=== PATIENT | male | born 1940 | race Caucasian/White ===

== ENCOUNTER 2017-01-23 18:06 | Observation (INO) | payer MEDICARE, BC ==
[~2017-01-23] VITALS: Ht 185.4 cm; Wt 99.0 kg
[~2017-01-23 18:06] MED LIST: AMOXICILLIN500 MG PO; CIPRO500 MG PO; EC ASPIRIN325 MG PO; FLOMAX0.4 M1 OR; FLOMAX0.4 M1 PO; LEVOTHYROXIN25 MC1 PO; LEVOTHYROXIN75 MCG PO; LISINOP/HCTZ1 TAB PO; METFORMIN500 MG PO; OMEPRAZOLE20 MG PO; PRAVACHOL20 MG PO; TRAMADOL HCL50 MG PO; VENTOLIN HF1 IN; WALKER ADULT XX
[2017-01-23 18:39] LABS: HEMATOCRIT 43.8 % (39.0-50.0); IMMATURE GRANULOCYTES 0.4 % (0.0-1.0); MEAN CELL VOLUME 88.8 fL CALC (80.0-100.0); MEAN CORPUSCULAR HGB 30.4 pG CALC (26.0-32.0); MEAN CORPUSCULAR HGB CONC 34.2 g/L CALC (32.0-36.0); NEUT# 5.33 thou/uL (1.82-7.42); RED BLOOD COUNT 4.93 mill/uL (4.70-6.10); RED CELL DISTRI WIDTH 14.5 % (11.5-15.5)
[2017-01-23 18:56] LABS: ALBUMIN 4.3 g/dL (3.2-5.0); ALKALINE PHOSPHATASE 58 u/l (38-126); AMYLASE 54 u/l (30-110); ANION GAP 16 (6-22 (CALC)); BILIRUBIN, TOTAL 0.9 mg/dL (0.0-1.4); BUN 26 mg/dL (8-23); BUN/CREATININE RATIO 25 (12-20 (CALC)); CALCIUM 9.1 mg/dL (8.4-10.2); CARBON DIOXIDE 20 mmol/l (22-30); CHLORIDE 106 mmol/l (95-108); GFR > 60 ML/MIN (>=60 (CALC)); GFR FOR AFR.AMER. > 60 ML/MIN (>=60 (CALC)); GLUCOSE 158 mg/dL (82-115); LIPASE 87 u/l (23-300); POTASSIUM 3.8 mmol/l (3.5-5.1); SGOT/AST 25 u/l (19-48); SGPT/ALT 42 u/l (11-66); SODIUM 139 mmol/l (137-146); TOTAL PROTEIN 7.8 g/dL (6.3-8.2)
[2017-01-23 19:08] LABS: MYOGLOBIN 112 ng/mL (0 - 121)
[2017-01-24 04:54] LABS: HEMATOCRIT 40.2 % (39.0-50.0); HEMOGLOBIN 13.7 g/dl (14.0-18.0); MEAN CELL VOLUME 89.5 fL CALC (80.0-100.0); MEAN CORPUSCULAR HGB 30.5 pG CALC (26.0-32.0); MEAN CORPUSCULAR HGB CONC 34.1 g/L CALC (32.0-36.0); RED BLOOD COUNT 4.49 mill/uL (4.70-6.10); RED CELL DISTRI WIDTH 14.3 % (11.5-15.5)
[2017-01-24 05:00] VITALS: BP 104/53
[2017-01-24 05:16] LABS: ANION GAP 13 (6-22 (CALC)); BUN 26 mg/dL (8-23); BUN/CREATININE RATIO 26 (12-20 (CALC)); CALCIUM 8.2 mg/dL (8.4-10.2); CALCULATED LDLCHOLESTEROL 57 mg/dL (62-129 (CALC)); CARBON DIOXIDE 23 mmol/l (22-30); CHLORIDE 110 mmol/l (95-108); CHOLESTEROL HDL RATIO 4.9 (<4.4 (CALC)); GFR > 60 ML/MIN (>=60 (CALC)); GFR FOR AFR.AMER. > 60 ML/MIN (>=60 (CALC)); GLUCOSE 130 mg/dL (82-115); HDL CHOLESTEROL 23 mg/dL (>=40); POTASSIUM 3.9 mmol/l (3.5-5.1); SODIUM 142 mmol/l (137-146); TOTAL CHOLESTEROL 114 mg/dl (0-199); TOTAL TRIGLYCERIDES 166 mg/dl (30-149); VLDL CHOLESTROL 33 mg/dl (0-38 (CALC))
[2017-01-24 08:45] VITALS: BP 113/55
[2017-01-24 12:51] LABS: URINE BILIRUBIN - DIPSTICK NEGATIVE (NEGATIVE); URINE BLOOD DIPSTICK LARGE (NEGATIVE); URINE COLOR YELLOW; URINE GLUCOSE - DIPSTICK NEGATIVE (NEGATIVE); URINE KETONE TRACE mg/dL (NEGATIVE); URINE LEUK ESTERASE NEGATIVE (NEGATIVE); URINE NITRITE - DIPSTICK NEGATIVE (Negative); URINE PH 5.5 (4.5-8.0); URINE PROTEIN - DIPSTICK NEGATIVE (NEG-TRACE); URINE UROBILINOGEN - DIPSTICK 0.2 E.U./dL (0.2)
[2017-01-24 12:56] LABS: URINE CLARITY SLIGHT CLOUDY
[2017-01-24 16:18] VITALS: BP 119/42
== END 2017-01-24 16:46 | disposition home or self-care (01) ==
LOC: ED 18:06 → ED-I 20:00 → ED 20:33 → MS2 20:35
PROVIDERS: Emergency Medicine; ADMIT Internal Medicine; ATTEND Internal Medicine
DX: R10.9 Unspecified abdominal pain (principal); R11.2 Nausea with vomiting, unspecified; E86.0 Dehydration; I10 Essential (primary) hypertension; I25.10 Atherosclerotic heart disease of native coronary artery without angina pectoris; E11.51 Type 2 diabetes mellitus with diabetic peripheral angiopathy without gangrene; Z95.1 Presence of aortocoronary bypass graft; R94.31 Abnormal electrocardiogram [ECG] [EKG]; R94.6 Abnormal results of thyroid function studies

== ENCOUNTER → 2018-01-25 | Outpatient (REF) | payer MEDICARE, BC ==
[2018-01-25 08:12] LABS: HEMATOCRIT 40.2 % (39.0-50.0); HEMOGLOBIN 13.8 g/dl (14.0-18.0); IMMATURE GRANULOCYTES 0.2 % (0.0-5.0); MEAN CELL VOLUME 88.7 fL CALC (80.0-100.0); MEAN CORPUSCULAR HGB 30.5 pG CALC (26.0-32.0); MEAN CORPUSCULAR HGB CONC 34.3 g/L CALC (32.0-36.0); NEUT# 5.02 thou/uL (1.82-7.42); RED BLOOD COUNT 4.53 mill/uL (4.70-6.10); RED CELL DISTRI WIDTH 13.7 % (11.5-15.5)
[2018-01-25 08:25] LABS: ALKALINE PHOSPHATASE 68 u/l (38-126); ANION GAP 14 (6-22 (CALC)); BILIRUBIN, TOTAL 0.5 mg/dL (0.0-1.4); BUN 31 mg/dL (8-23); BUN/CREATININE RATIO 27 (12-20 (CALC)); CALCULATED LDLCHOLESTEROL 73 mg/dL (62-129 (CALC)); CARBON DIOXIDE 23 mmol/l (22-30); CHLORIDE 108 mmol/l (95-108); CHOLESTEROL HDL RATIO 5.2 (<4.4 (CALC)); CREATININE 1.1 mg/dL (0.7-1.3); GFR > 60 ML/MIN (>=60 (CALC)); GFR FOR AFR.AMER. > 60 ML/MIN (>=60 (CALC)); HDL CHOLESTEROL 28 mg/dL (>=40); POTASSIUM 4.3 mmol/l (3.5-5.1); SGOT/AST 24 u/l (19-48); SODIUM 140 mmol/l (137-146); TOTAL CHOLESTEROL 144 mg/dl (0-199); TOTAL PROTEIN 7.3 g/dL (6.3-8.2); TOTAL TRIGLYCERIDES 212 mg/dl (30-149); VLDL CHOLESTROL 42 mg/dl (0-38 (CALC))
[2018-01-25 08:53] LABS: TSH, 3RD GENERATION 5.23 uIU/mL (0.47 - 4.68)
== END | disposition home or self-care (01) ==
LOC: LAB 06:52
PROVIDERS: ATTEND Nurse Practitioner Adult Health
DX: E03.9 Hypothyroidism, unspecified (principal); E11.9 Type 2 diabetes mellitus without complications; E78.5 Hyperlipidemia, unspecified

== ENCOUNTER 2018-09-19 14:29 | Emergency (ER) | payer MEDICARE, BC ==
[~2018-09-19] VITALS: Ht 185.4 cm; Wt 86.0 kg
[2018-09-19] MEDS ORDERED: COQ-1030 M1 PO (15:04)
[2018-09-19] MEDS ORDERED: PREDNISONE10 MG PO (15:05)
[2018-09-19 15:35] LABS: HEMATOCRIT 41.4 % (39.0-50.0); HEMOGLOBIN 13.3 g/dl (14.0-18.0); IMMATURE GRANULOCYTES 0.6 % (0.0-5.0); MEAN CELL VOLUME 88.3 fL CALC (80.0-100.0); MEAN CORPUSCULAR HGB 28.4 pG CALC (26.0-32.0); MEAN CORPUSCULAR HGB CONC 32.1 g/L CALC (32.0-36.0); NEUT# 8.64 thou/uL (1.82-7.42); RED BLOOD COUNT 4.69 mill/uL (4.70-6.10); RED CELL DISTRI WIDTH 14.4 % (11.5-15.5)
[2018-09-19 15:47] LABS: ALBUMIN 4.2 g/dL (3.2-5.0); ALKALINE PHOSPHATASE 79 u/l (38-126); ANION GAP 17 (6-22 (CALC)); BUN 36 mg/dL (8-23); BUN/CREATININE RATIO 36 (12-20 (CALC)); C-REACTIVE PROTEIN 1.9 mg/dL (0-0.9); CARBON DIOXIDE 20 mmol/l (22-30); CHLORIDE 109 mmol/l (95-108); CPK 42 u/l (52-200); GFR > 60 ML/MIN (>=60 (CALC)); GFR FOR AFR.AMER. > 60 ML/MIN (>=60 (CALC)); POTASSIUM 5.1 mmol/l (3.5-5.1); SGOT/AST 22 u/l (19-48); SODIUM 141 mmol/l (137-146); TOTAL PROTEIN 7.6 g/dL (6.3-8.2)
[2018-09-19 15:50] LABS: BILIRUBIN, TOTAL 0.4 mg/dL (0.0-1.4)
[2018-09-19 15:53] LABS: MYOGLOBIN 29 ng/mL (0 - 121)
[2018-09-19 16:04] LABS: URINE BILIRUBIN - DIPSTICK NEGATIVE (NEGATIVE); URINE BLOOD DIPSTICK MODERATE (NEGATIVE); URINE COLOR YELLOW; URINE GLUCOSE - DIPSTICK NEGATIVE (NEGATIVE); URINE KETONE NEGATIVE (NEGATIVE); URINE NITRITE - DIPSTICK NEGATIVE (Negative); URINE PH 5.5 (4.5-8.0); URINE PROTEIN - DIPSTICK NEGATIVE (NEG-TRACE); URINE UROBILINOGEN - DIPSTICK 0.2 E.U./dL (0.2)
[2018-09-19 16:06] LABS: URINE LEUK ESTERASE SMALL (NEGATIVE)
[2018-09-19 16:15] LABS: TSH, 3RD GENERATION 1.39 uIU/mL (0.47 - 4.68)
[2018-09-19 16:27] LABS: URINE RBC 0-2 RBC/hpf (0-5)
[2018-09-19 17:45] VITALS: BP 140/66
== END 2018-09-19 17:45 | disposition home or self-care (01) ==
LOC: ED 14:29
PROVIDERS: Emergency Medicine
DX: R49.0 Dysphonia (principal); E11.9 Type 2 diabetes mellitus without complications; Z79.52 Long term (current) use of systemic steroids; M79.10 Myalgia, unspecified site; E07.9 Disorder of thyroid, unspecified
CPT/HCPCS: Q9967

== ENCOUNTER 2019-07-19 | Emergency (ER) | payer MEDICARE, BC ==
[~2019-07-19] MED LIST changes: +COQ-1030 M1 PO; +PREDNISONE10 MG PO
[2019-07-19 04:05] LABS: HEMATOCRIT 40.3 % (39.0-50.0); HEMOGLOBIN 13.7 g/dl (14.0-18.0); IMMATURE GRANULOCYTES 0.5 % (0.0-5.0); MEAN CELL VOLUME 88.4 fL CALC (80.0-100.0); NEUT# 13.35 thou/uL (1.82-7.42); RED BLOOD COUNT 4.56 mill/uL (4.70-6.10); RED CELL DISTRI WIDTH 13.8 % (11.5-15.5)
[2019-07-19 04:23] LABS: ALBUMIN 3.9 g/dL (3.2-5.0); ALKALINE PHOSPHATASE 68 u/l (38-126); AMYLASE < 30 u/l (30-110); ANION GAP 15 (6-22 (CALC)); BUN 31 mg/dL (8-23); BUN/CREATININE RATIO 23 (12-20 (CALC)); CARBON DIOXIDE 19 mmol/l (22-30); CHLORIDE 105 mmol/l (95-108); CREATININE 1.3 mg/dL (0.7-1.3); GFR 53 ML/MIN (>=60 (CALC)); GFR FOR AFR.AMER. > 60 ML/MIN (>=60 (CALC)); LIPASE 66 u/l (23-300); POTASSIUM 4.2 mmol/l (3.5-5.1); SGOT/AST 18 u/l (19-48); SODIUM 135 mmol/l (137-146); TOTAL PROTEIN 6.8 g/dL (6.3-8.2)
[2019-07-19 05:00] LABS: URINE BILIRUBIN - DIPSTICK NEGATIVE (NEGATIVE); URINE BLOOD DIPSTICK MODERATE (NEGATIVE); URINE COLOR YELLOW; URINE GLUCOSE - DIPSTICK 100 mg/dL (NEGATIVE); URINE KETONE TRACE mg/dL (NEGATIVE); URINE PH 5.5 (4.5-8.0); URINE PROTEIN - DIPSTICK NEGATIVE (NEG-TRACE); URINE UROBILINOGEN - DIPSTICK 0.2 E.U./dL (0.2)
[2019-07-19 05:13] LABS: URINE LEUK ESTERASE SMALL (NEGATIVE)
[2019-07-19 05:14] LABS: URINE EPITHELIAL CELLS FEW EPI/hpf (0-FEW); URINE NITRITE - DIPSTICK NEGATIVE (Negative); URINE WBC >100 WBC/hpf (0-5)
[2019-07-19 05:15] LABS: URINE BACTERIA FEW hpf; URINE YEAST FEW hpf
--- NOTE | 2019-07-21 07:59 | NUR ---
PRELIMINARY BLOOD CULTURE RESULTS CALLED TO RAH VANEGAS AT [facility] [phone] ROOM 1085. 04/21 VIALS GROWING GRAM (+) COCCI
--- NOTE | 2019-07-24 08:18 | NUR ---
FAXED FINAL C&S RESULTS TO PTS NURSE AT [facility] [id number] [phone]
== END 2019-07-19 06:46 | disposition short-term general hospital (02) ==
DX: N13.6 Pyonephrosis (principal); J18.9 Pneumonia, unspecified organism; E11.9 Type 2 diabetes mellitus without complications; R78.81 Bacteremia; Z79.84 Long term (current) use of oral hypoglycemic drugs; Z87.442 Personal history of urinary calculi

== ENCOUNTER 2020-09-29 00:32 | Observation (INO) | payer MEDICARE, BC ==
[~2020-09-29] VITALS: Ht 182.9 cm; Wt 90.2 kg
--- NOTE | 2020-09-29 00:32 | NUR ---
PT TO ROOM VIA EMS STRETCHER FOR BEDSIDE TRIAGE.
--- NOTE | 2020-09-29 01:18 | NUR ---
PT ALERT AND ORIENTED, SOME MILD EXERTIONAL DYSPNEA NOTED, PT COMPLAINS OF WEAKNESS THAT STARTED YESTERDAY, PT ALSO NICOLAS D A PROSTATE PROCEDURE DONE ON TUESDAY AND SAYS SILVA IS SUPPOSED TO COME OUT TODAY BUT HE DIDN'T THINK THAT WAS GONNA HAPPEN. URINE IN LEG BAG WAS NOTED TO BE BLOODY WITH NO CLOTS NOTED, CHANGED FROM LEG BAG TO LARGER VOLUME BAG FOR PT COMFORT.
[2020-09-29 01:47] LABS: HEMATOCRIT 36.3 % (39.0-50.0); HEMOGLOBIN 11.4 g/dl (14.0-18.0); IMMATURE GRANULOCYTES 0.5 % (0.0-5.0); MEAN CORPUSCULAR HGB 25.4 pG CALC (26.0-32.0); MEAN CORPUSCULAR HGB CONC 31.4 g/dL CAL (32.0-36.0); NEUT# 8.12 thou/uL (1.82-7.42); RED BLOOD COUNT 4.48 mill/uL (4.70-6.10); RED CELL DISTRI WIDTH 18.9 % (11.5-15.5)
[2020-09-29 01:52] LABS: ALBUMIN 3.5 g/dL (3.2-5.0); ALKALINE PHOSPHATASE 58 u/l (38-126); ANION GAP 12 (6-22 (CALC)); BUN 18 mg/dL (8-23); BUN/CREATININE RATIO 17 (12-20 (CALC)); CARBON DIOXIDE 21 mmol/l (22-30); CHLORIDE 105 mmol/l (95-108); CREATININE 1.1 mg/dL (0.7-1.3); GFR > 60 ML/MIN (>=60 (CALC)); GFR FOR AFR.AMER. > 60 ML/MIN (>=60 (CALC)); POTASSIUM 3.9 mmol/l (3.5-5.1); SGOT/AST 18 u/l (19-48); SODIUM 134 mmol/l (137-146); TOTAL PROTEIN 6.5 g/dL (6.3-8.2)
[2020-09-29 01:56] LABS: URINE BILIRUBIN - DIPSTICK NEGATIVE (NEGATIVE); URINE BLOOD DIPSTICK LARGE (NEGATIVE); URINE KETONE 40 mg/dL (NEGATIVE); URINE LEUK ESTERASE TRACE (NEGATIVE); URINE PH 5.5 (4.5-8.0); URINE PROTEIN - DIPSTICK 100 mg/dL (NEG-TRACE); URINE SPECIFIC GRAVITY 1.025; URINE UROBILINOGEN - DIPSTICK 0.2 E.U./dL (0.2)
[2020-09-29 01:57] LABS: URINE NITRITE - DIPSTICK NEGATIVE (Negative)
[2020-09-29 01:58] LABS: URINE GLUCOSE - DIPSTICK NEGATIVE (NEGATIVE)
[2020-09-29 01:59] LABS: URINE EPITHELIAL CELLS FEW EPI/hpf (0-FEW); URINE RBC >100 RBC/hpf (0-5)
[2020-09-29 02:00] LABS: URINE BACTERIA MANY hpf
[2020-09-29 02:01] LABS: URINE COLOR AMBER
[2020-09-29 02:14] LABS: BILIRUBIN, TOTAL 0.7 mg/dL (0.0-1.4)
--- NOTE | 2020-09-29 02:30 | NUR ---
PT RESTING WITH EYES CLOSED, NO NEW COMPLAINTS OFFERED , COMFORT MEAWSURES PROVIDED, WILL CONTINUE TO MONITOR.
--- NOTE | 2020-09-29 03:29 | NUR ---
PT RESTING WITH EYES CLOSED, NO NEW COMPLAINTS OFFERED, CALL AMBROSIO WITHIN REACH.
--- NOTE | 2020-09-29 04:39 | NUR ---
PT RESTING ON STRETCHER WITH EYES CLOSED, OFFERS NO NEW COMPLAINTS, CALL AMBROSIO WITHIN REACH
--- NOTE | 2020-09-29 05:55 | NUR ---
PT REMAINS RESTING W/ EYES CLOSED, NO COMPLAINTS OFERED, NO S/S OF DISTRESS OR DISCOMFORT NOTED.
--- NOTE | 2020-09-29 06:43 | NUR ---
SILVA EMPTIED OF 700 ML BLOODY URINE
--- NOTE | 2020-09-29 07:03 | NUR ---
REPORT RECEIVED FROM RAH CHANDLER.
--- NOTE | 2020-09-29 08:01 | NUR ---
PT RESTING, NO DISTRESS NOTED. BED IN LOW POSITION, CALL LIGHT WITHIN REACH.
--- NOTE | 2020-09-29 09:41 | NUR ---
RE[facility]
[2020-09-29 10:06] VITALS: BP 169/66
--- NOTE | 2020-09-29 10:10 | NUR ---
REPORT RECEIVED FROM JULY IN ED, PT TRANSPORTED TO UNIT VIA STRETCHER AND TRANSFERRED TO BED, ALERT AND ORIENTED X 4, DENIES PAIN/DIZZINESS AT THIS TIME. TELE MONITOR IN PLACE, SILVA CATHETER IN PLACE DRAINING BLOODY URINE. ORIENTED TO ROOM AND CALL AMBROSIO, BED LOCKED IN LOWEST POSITION AND CALL AMBROSIO IN REACH.
--- NOTE | 2020-09-29 12:37 | NUR ---
PT JUST AWOKE FROM 1HR SLEEP STATING HE WAS REALLY TIRED TO THE POINT HE COULD NOT STAY AWAKE FOR ADMISSION QUESTIONS, HE IS HAVING TREMORS AT THIS TIME BUT DENIES BEING COLD, TEMP = 97.8 NOW, P= 83, R= 24, BP= 171/61, 98% RA. WARM BLANKETS APPLIED AND CONDITION IMPROVING, WILL CONTINUE TO MONITOR.
[2020-09-29 14:55] VITALS: BP 145/69
[2020-09-29 19:00] VITALS: BP 102/46
--- NOTE | 2020-09-29 20:00 | NUR ---
RECEIVED REPORT FROM NURSE LEE, PATIENT SITTING IN CHAIR, WITH SALINE LOCK ON LT WRIST PATENT FLUSHES WELL, HOOKED TO TELEMTRY SR 72, ACTIVE BOWEL SOUNDS, LBM 09/29, WITH INDWELLING SILVA CATHETER DRAINING MOSES RED URINE, PATIENT STATED PROSTATE SX LAST TUESDAY, ACCUCHEK 287 CARDIOVASCULAR PHYSICIAN ASSISTANT MADE AWARE AND ORDERED A LOW SLIDING SCALE, FAX TO [place], PATIENT ASSITED BACK IN BED.
[2020-09-30] VITALS: BP 140/57
--- NOTE | 2020-09-30 00:30 | NUR ---
PATIENT APPEARS TO BE SLEEPING EASY TO AWAKEN , NO DISCOMFORTS NOTED AT THIS TIME,BREATHING UNLABORED DUE NITRO APPLIED TO RT CHEST CALL LIGHT AT REACH.
[2020-09-30 04:00] VITALS: BP 135/61
--- NOTE | 2020-09-30 04:35 | NUR ---
PATIENT RESTING WITH EYES CLOSED, BREATHING UNLABORED, REMAINS ON TELEMETRY SB 59, CALL LIGHT AT REACH.
[2020-09-30 06:08] LABS: HEMATOCRIT 36.1 % (39.0-50.0); HEMOGLOBIN 11.2 g/dl (14.0-18.0); MEAN CELL VOLUME 82.6 fL CALC (80.0-100.0); MEAN CORPUSCULAR HGB 25.6 pG CALC (26.0-32.0); RED BLOOD COUNT 4.37 mill/uL (4.70-6.10); RED CELL DISTRI WIDTH 19.1 % (11.5-15.5)
[2020-09-30 06:19] LABS: CHOLESTEROL HDL RATIO 4.5 (<4.4 (CALC)); CREATININE 1.8 mg/dL (0.7-1.3); MAGNESIUM 1.8 mg/dL (1.6-2.3); POTASSIUM 4.2 mmol/l (3.5-5.1)
[2020-09-30 07:41] VITALS: BP 107/48
--- NOTE | 2020-09-30 07:50 | NUR ---
SHIFT CHANGE REPORT, PT AWAKE ALERT AND ORIENTED, STATES HE FEELS MUCH BETTER TODAY THAN HE DID YESTERDAY, TELE MONITOR IN PLACE, SILVA IN PLACE WITH DARK BROWN URINE AND PARTICLES OF SEDIMENTS, CALL AMBROSIO IN REACH AND BED LOCKED IN LOWEST POSITION.
[2020-09-30 10:38] VITALS: BP 104/48
--- NOTE | 2020-09-30 12:06 | NUR ---
PHYSICAL THERAPIST AMBULATED PT DOWN HALLWAY, PT TOLERATED WELL, SITTING UP IN RECLINER AT THIS TIME HAVING MEAL WHICH HAS JUST BEEN SERVED.
[2020-09-30 15:24] VITALS: BP 135/52
--- NOTE | 2020-09-30 15:25 | NUR ---
Patient was seen and treated at bedside. Patient identity verified via full name and . Patient reports minimal pain and soreness on surgical site. Patient has IV line and estrella catheter with bloody urine on bag, states that it looks better toay compared to yesterdays' output. Patient tolerated seated exercises and sit to stand activities. Patient tolerated gait training activities on hallway using rolling walker for about 50 ft. Patient reports feeling tired and fatigued on B LE. Patient assisted in transferring back into the bed, adjusted position to patient's comfort. Patient was left in semi-hernandez position, resting comfortably in bed with call button at bedside.
--- NOTE | 2020-09-30 16:00 | NUR ---
RESTING IN BED, NO NEW COMPLAINS
[2020-09-30 19:00] VITALS: BP 127/60
--- NOTE | 2020-09-30 20:20 | NUR ---
PT RESTING QUIETLY IN BED WITH EYES CLOSED. ASSESSMENTS COMPLETED, PLEASE SEE DOCUMENTTION. BREATHING EVEN AND UNLABORED. IV REMAINS IN L WRIST #22, IV FLUIDS NS @ 100ML/HR. NO CONCERNS NOTED. NO S/S OF DISTRESS. DENIES PAIN. PT NOTED TO BE VERY SLEEPY, PARTICIPATES WITH ASSESSMENTS AND THEN FALLS RIGHT BACK TO SLEEP. SAFETY PRECAUTIONS IN PLACE, BED IN LOWEST POSITION, CALL LIGHT WITHIN REACH. WILL MONITOR
--- NOTE | 2020-09-30 21:25 | NUR ---
PER PT NOTE FROM ROUNDING PHYSICIAN PT IS SUPPOSED TO BE ON OXYGEN VIA NC. PT OYGEN SATURATIONS ARE WNL 97-98%. O2 NOT INDICATED AT THIS TIME. WILL CONTINUE TO MONITOR
[2020-10-01] VITALS: BP 152/60
--- NOTE | 2020-10-01 00:54 | NUR ---
PT RESTING QUIETLY WITH EYES CLOSED. NO S/S OF DISTRESS. DENIES PAIN. NO COMPLAINTS VOICED. URINE CONTINUES TO DRAIN TO GRAVITY INTO SILVA DRAINAGE BAG. URINE IN REDDISH/BROWN IN COLOR. NO S/S OF SILVA OCCLUSION, DECREASED URINARY OUTPUT. SAFETY PRECAUTIONS IN PLACE, BED IN LOWEST POSITION, CALL LIGHT WITHIN REACH.
[2020-10-01 04:00] VITALS: BP 116/54
--- NOTE | 2020-10-01 04:25 | NUR ---
PT RESTING QUIETLY IN BED WITH EYES CLOSED. BREATHING IS EVEN AND UNLABORED. SILVA CONTINUES TO DRAIN TO GRAVITY, REDDISH/BROWN URINE. NO COMPLAINTS VOICED. SAFETY PRECAUTIONS IN PLACE, BED IN LOWEST POSITION, CALL LIGHT WITHIN REACH. WILL MONITOR
[2020-10-01 05:21] LABS: HEMATOCRIT 30.2 % (39.0-50.0); HEMOGLOBIN 9.7 g/dl (14.0-18.0); MEAN CELL VOLUME 81.2 fL CALC (80.0-100.0); MEAN CORPUSCULAR HGB 26.1 pG CALC (26.0-32.0); MEAN CORPUSCULAR HGB CONC 32.1 g/dL CAL (32.0-36.0); RED BLOOD COUNT 3.72 mill/uL (4.70-6.10); RED CELL DISTRI WIDTH 18.8 % (11.5-15.5)
[2020-10-01 05:48] LABS: CREATININE 1.5 mg/dL (0.7-1.3); MAGNESIUM 1.7 mg/dL (1.6-2.3); POTASSIUM 3.9 mmol/l (3.5-5.1)
[2020-10-01 07:39] VITALS: BP 124/57
--- NOTE | 2020-10-01 08:21 | NUR ---
SHIFT CHANGE REPORT, PT SLEEPING BUT AWAKENED TO VERBAL STIMULI, STATES HE FEELS GOOD TODAY AND READY TO GO HOME, TELE MONITOR IN PLACE, IVF 0.9 NS INFUSING @ 100ML/HR TO SITE IN [facility], SILVA CATHETER IN PLACE WITH SEDIMENTED YELLOW URINE WHICH HAS CLEARED UP MUCH FROM PREVIOUS DAYS WHEN IT WAS VERY BLOODY WITH MUCH CLOTS AND SEDIMENTS, ALL NEEDS ADDRESSED, CALL AMBROSIO IN REACH AND BED LOCKED IN LOWEST POSITION.
[2020-10-01 10:43] VITALS: BP 137/50
--- NOTE | 2020-10-01 11:25 | NUR ---
Patient seen an treated today. Patient identified by full name and date of . Physical therapy management: 1. Active range of motion of the UE x 10 repetitions. 2. Active range of motion of the LE x 10 repetitions. 3. Sit to stand and stand to sit x repetitions. 4. Sitting balance/tolerance x 5 minutes 5. Standing balance/tolerance x 10 minutes [address]ing in place for 1-2 minutes 7. Review of fall precautions. Patient verbalized understanding.
--- NOTE | 2020-10-01 12:00 | NUR ---
SITTING UP IN RECLINER, ATE MEAL, ASKING FOR SHOWER, NEEDS MET
[2020-10-01 14:00] VITALS: BP 131/51
--- NOTE | 2020-10-01 16:00 | NUR ---
SLEEPING IN BED, BREATHING EVEN AND NON-LABORED, NO SIGN DISTRESS.
[2020-10-01 19:00] VITALS: BP 120/52
--- NOTE | 2020-10-01 20:00 | NUR ---
PHYSICAL ASSESMENT COMPLETE. PT CURRENTLY DENIES PAIN OR DISCOMFORT. SCHEDULED MEDICATIONS AND PRN MEDICATION ADMINISTERED, SEE E-MAR. PT DENIES ANY NEEDS AT THIS TIME. PLAN OF CARE REVIEWED, PT DENIES QUESTIONS, VERBALIZES UNDERSTANDING. ITEMS WITHIN REACH, BED LOCKED IN LOW POSITION W/ BEDRAILS UP X2. CALL AMBROSIO WITHIN REACH, AGREES TO CALL PRN.
[2020-10-02] VITALS: BP 128/56
--- NOTE | 2020-10-02 | NUR ---
PT LAYING IN BED WITH EYES CLOSED, APPEARS TO BE SLEEPING, APPEARS COMFORTABLE AND IN NO DISTRESS. RESPIRATIONS REGULAR AND UNLABORED. SILVA CATH DRAINING TO GRAVITY. ITEMS REMAIN WITHIN REACH, CALL AMBROSIO REMAINS WITHIN REACH. BED REMAINS LOCKED AND IN LOW POSITION WITH BEDRAILS UP X2. WILL CONTINUE TO MONITOR.
[2020-10-02 04:00] VITALS: BP 146/60
--- NOTE | 2020-10-02 04:21 | NUR ---
PT RESTING IN BED, NO SIGNS OF DISTRESS NOTED, RESP EVEN AND UNLABORED. PT VOICES NO NEEDS OR COMPLAINTS AT THIS TIME. CALL LIGHT IN REACH, CONTINUE TO MONITOR.
[2020-10-02 05:41] LABS: HEMOGLOBIN 9.6 g/dl (14.0-18.0); MEAN CELL VOLUME 81.1 fL CALC (80.0-100.0); MEAN CORPUSCULAR HGB 25.9 pG CALC (26.0-32.0); RED BLOOD COUNT 3.7 mill/uL (4.70-6.10); RED CELL DISTRI WIDTH 18.3 % (11.5-15.5)
[2020-10-02 05:57] LABS: ANION GAP 9 (6-22 (CALC)); BUN 27 mg/dL (8-23); BUN/CREATININE RATIO 22 (12-20 (CALC)); CARBON DIOXIDE 20 mmol/l (22-30); CHLORIDE 111 mmol/l (95-108); CREATININE 1.2 mg/dL (0.7-1.3); GFR 58 ML/MIN (>=60 (CALC)); GFR FOR AFR.AMER. > 60 ML/MIN (>=60 (CALC)); MAGNESIUM 1.8 mg/dL (1.6-2.3); POTASSIUM 4.1 mmol/l (3.5-5.1); SODIUM 137 mmol/l (137-146)
[2020-10-02 07:25] VITALS: BP 144/60
--- NOTE | 2020-10-02 08:00 | NUR ---
PATIENT IS SITTING IN THE RECLINER. CERTIFIED NURSES AIDE SETUP PATIENT FOR BREAKFAST. ASSESSMENT DONE. RESPS EVEN AND UNLABORED. TELE IN PLACE. PAIN DENIES PAIN . JUST LEFT LEG IS SORE BUT DENIES PAIN MEDICATIONS. SILVA IS PATIENT WITH YELLOW URINE. SAFETY PRECAUTIONS REINFORCES AND CALL LIGHT IN REACH.
--- NOTE | 2020-10-02 09:47 | NUR ---
REMOVED SILVA AND PATIENT TOLERATED WELL. PROVIDED A URINAL. PATIENT DENIES NEEDS. CALL LIGHT IN REACH.
[2020-10-02 10:54] VITALS: BP 124/50
--- NOTE | 2020-10-02 11:44 | NUR ---
PATIENT IS SITTING IN RECLINER DRINKING WATER. PATIENT DENIES NEEDS AT THIS TIME. CALL LIGHT IN REACH.
--- NOTE | 2020-10-02 13:12 | NUR ---
PT visit attempted, patient refused PT exercises stating that he was given oral laxatives earlier this morning and was just given suppository to induce bowel movement.
[2020-10-02] MEDS ORDERED: PREDNISONE5 MG PO (13:55)
[2020-10-02] MEDS ORDERED: CIPROFLOXACN500 MG PO (13:57)
[2020-10-02] MEDS ORDERED: SENNA8.6 MG PO (14:04)
--- NOTE | 2020-10-02 14:57 | NUR ---
Discharge instructions given. Patient verbalizes understanding of same. Discharged in stable condition via Wheelchair to Home with friend. All belongings sent with pt.
== END 2020-10-02 14:37 | disposition home health service (06) ==
LOC: ED 00:32 → ED-I 06:22 → ED 06:39 → MS2 06:40
PROVIDERS: Emergency Medicine; Nurse Practitioner; ADMIT Internal Medicine; ATTEND Internal Medicine
DX: R07.9 Chest pain, unspecified (principal); N39.0 Urinary tract infection, site not specified; R42 Dizziness and giddiness; N17.9 Acute kidney failure, unspecified; I10 Essential (primary) hypertension; E11.51 Type 2 diabetes mellitus with diabetic peripheral angiopathy without gangrene; I25.10 Atherosclerotic heart disease of native coronary artery without angina pectoris; K59.00 Constipation, unspecified; M35.3 Polymyalgia rheumatica; B96.89 Other specified bacterial agents as the cause of diseases classified elsewhere; Z95.1 Presence of aortocoronary bypass graft; Z98.890 Other specified postprocedural states; Z96.0 Presence of urogenital implants; Z79.84 Long term (current) use of oral hypoglycemic drugs; Z87.440 Personal history of urinary (tract) infections; Z20.822 Contact with and (suspected) exposure to COVID-19
CPT/HCPCS: G0378; J1650

== ENCOUNTER 2020-10-05 19:34 | Inpatient (IN) | payer MEDICARE, BC ==
[~2020-10-05] VITALS: Ht 182.9 cm; Wt 92.0 kg
[~2020-10-05 19:34] MED LIST changes: +CIPROFLOXACN500 MG PO; +PREDNISONE5 MG PO; +SENNA8.6 MG PO
--- NOTE | 2020-10-05 19:52 | NUR ---
MOVED TO ROOM 10 BY EMS FOR TRIAGE.
[2020-10-05 20:45] LABS: HEMATOCRIT 30.6 % (39.0-50.0); HEMOGLOBIN 9.9 g/dl (14.0-18.0); IMMATURE GRANULOCYTES 0.3 % (0.0-5.0); MEAN CELL VOLUME 79.7 fL CALC (80.0-100.0); MEAN CORPUSCULAR HGB 25.8 pG CALC (26.0-32.0); MEAN CORPUSCULAR HGB CONC 32.4 g/dL CAL (32.0-36.0); NEUT# 7.55 thou/uL (1.82-7.42); RED BLOOD COUNT 3.84 mill/uL (4.70-6.10)
[2020-10-05 20:56] LABS: ALBUMIN 3.7 g/dL (3.2-5.0); ALKALINE PHOSPHATASE 56 u/l (38-126); ANION GAP 15 (6-22 (CALC)); BUN 31 mg/dL (8-23); BUN/CREATININE RATIO 24 (12-20 (CALC)); CARBON DIOXIDE 21 mmol/l (22-30); CHLORIDE 104 mmol/l (95-108); CREATININE 1.3 mg/dL (0.7-1.3); GFR 53 ML/MIN (>=60 (CALC)); GFR FOR AFR.AMER. > 60 ML/MIN (>=60 (CALC)); POTASSIUM 4.2 mmol/l (3.5-5.1); SGOT/AST 27 u/l (19-48); SODIUM 136 mmol/l (137-146); TOTAL PROTEIN 7.3 g/dL (6.3-8.2)
[2020-10-05 21:02] LABS: BILIRUBIN, TOTAL 0.4 mg/dL (0.0-1.4)
[2020-10-05 21:04] LABS: ACT PARTIAL THROMBO TIME 25.5 SECONDS (20.0-32.5); INTERNATIONAL NORMALIZED RATIO 1.1 RATIO (0.7-1.3); PROTHROMBIN TIME 11.3 SECONDS (9.0-12.5)
--- NOTE | 2020-10-05 22:14 | NUR ---
UNSUCCESSFUL ATTEMPTS TO PLACE SILVA CATH BY NURSES X3 INCLUDING THIS NURSE -16 FR CATH AND CHARGE NURSE. UNSUCCESSFUL ATTEMPT BY ED PHYSICIAN -18 FR AND 20 FR COUDE . UROLOGIST NOTIFIED BY PHYSICIAN. DARA TO HOLD SILVA PLACEMENT AT THIS TIME. BLOOD NOTED AT SITE WITH INITIAL ATTEMPT BY ADWOA PAYTON. PATIENT WITH CONSTANT LEAKING OF URINE. PREVIOUS BLADDER SCAN REVEALED ABOUT 320ML OF URINE. BED LINEN CHANGED AFTER INITIAL SILVA ATTEMPT - BED AND CLOTHING SATURATED WITH URINE. EXTRENAL CATH PLACED. SMALL AMT PINK URINE IN COLLECTION.
--- NOTE | 2020-10-05 23:30 | NUR ---
EXTERNAL CATH FOUND OFF PATIENT. BED PAD SATURATED WITH URINE. LINEN AND PAD CHANGED. EXTERNAL CATH REPLACED
[2020-10-06 00:28] LABS: URINE BLOOD DIPSTICK LARGE (NEGATIVE); URINE COLOR RED; URINE GLUCOSE - DIPSTICK NEGATIVE (NEGATIVE); URINE KETONE 15 mg/dL (NEGATIVE); URINE PH 5.5 (4.5-8.0); URINE PROTEIN - DIPSTICK 100 mg/dL (NEG-TRACE); URINE UROBILINOGEN - DIPSTICK 0.2 E.U./dL (0.2)
[2020-10-06 00:37] LABS: URINE BILIRUBIN - DIPSTICK NEGATIVE (NEGATIVE); URINE LEUK ESTERASE SMALL (NEGATIVE); URINE NITRITE - DIPSTICK NEGATIVE (Negative)
[2020-10-06 00:38] LABS: URINE BACTERIA FEW hpf; URINE RBC 50-100 RBC/hpf (0-5); URINE SQUAMOUS EPITHELIAL CELL FEW EPI/hpf (0-FEW)
--- NOTE | 2020-10-06 01:02 | NUR ---
150 ML BLOOD TINGED URINE EMPTIED
--- NOTE | 2020-10-06 01:08 | NUR ---
REPORT GIVEN TO ADWOA PAYTON. PATIENT BEING TAKEN UP TO FLOOR BY NURSE. NO DISTRESS; NO COMPLAINTS
[2020-10-06 01:35] VITALS: BP 127/58
--- NOTE | 2020-10-06 02:16 | NUR ---
PT ARRIVED TO FLOOR ESCORTED BY ER STAFF VIA STRETCHER. ASSESSMENTS COMPLETED WITH MINIMAL ASSISTANCE FROM PT, VERY LETHARGIC AND SLEEPY. PLEASE SEE DOCUMENTATION. BREATHING EVEN AND UNLABORED. NO COMPLAINTS VOICED AT THIS TIME. NO S/S OIF DISTRESS NOTED. DENIES PAIN. STARTED IV FLUIDS UPON ARRIVAL TO THE FLOOR AND ADMINSTERED SQ LOVENOX PER ORDER. PT RERSTING QUIETLY AT THIS TIME. WILL MONITOR
[2020-10-06 04:00] VITALS: BP 140/61
--- NOTE | 2020-10-06 04:11 | NUR ---
PT RESTING QUIETLY WITH EYES CLOSED. NO COMPLAINTS VOICED. NO S/S OF DISTRESS NOTED. BREATHING EVEN AND UNLABORED. SILVA DRAINING TO GRAVITY, BLOOD TINGED. NO S/S OF CLOTS NOTED IN URINE AT THIS TIME. WILL MONITOR
--- NOTE | 2020-10-06 07:00 | NUR ---
RECIEVED REPORT FROM RAH RAMAN
--- NOTE | 2020-10-06 07:48 | NUR ---
PT SLEEPING IN SEMI FOWLERS POSITION. PT AWAKENS TO SPEECH. PT IS A/O X3 BUT VERY DROWSY. ASSESSMENT AND VITALS COMPLETED.TEMP 99.2, BP 166/79, HR 79, O2 98% ON ROOM AIR. REPSIRATIONS ARE EVEN AND UNLABORED WITH NO DISTRESS NOTED. LUNG SOUNDS ARE CLEAR. MURRMUR PRESENT UPON ALSCUTATION. BOWEL SOUNDS ARE ACTIVE. #20G EMS LAC INFUSING WITH IVF PER ORDER, SITE REAMINS HEALTHY AND PATENT. #18G RH FLUSHED, SITE REMAINS IN PLACE. SKIN INTACT. CONDOM CATHATER IN PLACE, TEA COLOR URINE NOTED. PT DENIES OF ANY PAINS OR DISCOMFORTS AT THIS TIME. PT TO BE MEDICATED FOR TEMP. ALL SAFETY PRECAUTIONS ARE IN PLACE WITH CALL LIGHT IN REACH. WILL CONTINUE TO MONITOR
[2020-10-06 07:50] VITALS: BP 166/79
--- NOTE | 2020-10-06 10:08 | NUR ---
CALL RECIEVED FROM DR BARRAGAN. ORDERS TO MAKE PT NPO.
--- NOTE | 2020-10-06 10:32 | NUR ---
DR GAUTAM AT BEDSIDE
--- NOTE | 2020-10-06 10:51 | NUR ---
BLADDER SCAN COMPLETED. 196 NOTED.
--- NOTE | 2020-10-06 11:00 | NUR ---
DR GAUTAM AT BEDSIDE
--- NOTE | 2020-10-06 11:40 | NUR ---
CONDOM CATHATER NOT ATTACTED. NEW CONDOM CATHATER REAPPLIED. URINE REMAINS TEA COLORED. RESPIRATIONS ARE EVEN AND UNLABORED WITH NO DISTRESS NOTED. #20G LAC LISETH INFUSING IWTH IVF, SITE REMAINS HEALTHY AND PATENT. #18G RH REMAINS IN PLACE. PT DENIES OF ANY PAINS OR DISCOMFORTS BUT STATES " I AM REALLY TIRED." ALL SAFETY PRECAUTIONS ARE IN PLACE WITH CALL LIGHT IN REACH.PT REMAINS NPO. WILL CONTINUE TO MONITOR.
[2020-10-06 13:11] VITALS: BP 151/57
--- NOTE | 2020-10-06 13:11 | NUR ---
REASSESSMENT OF BP REUSLTING IN 151/57, HR 66. RESPIRATIONS ARE EVEN AND UNLABORED. CONDOM CATH IN PLACE. NO SIGNS OF DISTRESS. ALL SAFETY PRECAUTIONS ARE IN PLACE. WILL CONTINUE TO MONITOR.
[2020-10-06 14:50] VITALS: BP 125/47
--- NOTE | 2020-10-06 14:56 | NUR ---
PT TRANSPORTED TO CT VIA WHEELCHAIR IN STABLE CONDITION ACCOMPAINED BY JOSE ADAN
--- NOTE | 2020-10-06 15:36 | NUR ---
PT BACK FROM CT. METFORMIN TO BE HELD FOR 48 HRS. CONDOM CATHATER IN PLACE, TUBGIN PATENT. #20G LW INFUSING WITH IVF PER ORDER. #18G RH IN PLACE. PT DENIES OF ANY PAINS OR DISCOMFORTS AT THIS TIME. ALL SAFETY PRECAUTIONS ARE IN PLACE WITH CALL LIGHT IN REACH. WILL CONTINUE TO MONITOR.
--- NOTE | 2020-10-06 16:51 | NUR ---
DR BARRAGAN AT BEDSIDE
--- NOTE | 2020-10-06 18:18 | NUR ---
PT ASSISTED UP TO CHAIR FOR DINNER. RESPIRATIONS ARE EVEN AND UNLABORED WITH NO DISTRESS. CONDOM CATH REMAINS IN PLACE. ALL SAFETY PRECAUTIONS ARE IN PLACE. WILL CONTINUE TO MONITOR.
[2020-10-06 19:00] VITALS: BP 144/67
--- NOTE | 2020-10-06 20:00 | NUR ---
PATIENT ALERT ORIENTED, CURRENTLY RESTING IN BED, REPORT GIVEN BY NURSE HIDALGO, WITH EMS SITE G20 ON LEFT WRIST, AND ANOTHER IV LINE ON RT HAND G18, DIMINISHED LUNG SOUNDS, LBM 6/21, WITH CONDOM CATH CONNECTED TO URINE BAG DRAINING TEA COLORED URINE, CALL LIGHT IN PLACE.
--- NOTE | 2020-10-06 21:10 | NUR ---
PATIENT IS NOT CONNECTED TO CONDOM CATH, NEW CONDOM CATHETER IN PLACE CONNECTED TO URINE BAG DRAINING TEA COLORED URINE.
--- NOTE | 2020-10-07 00:47 | NUR ---
PATIENT SLEEPING WITH EYES CLOSED, BREATHING UNLABORED CALL LIGHT AT REACH.
--- NOTE | 2020-10-07 02:26 | NUR ---
IV CATHETER ON LEFT WRIST REMOVED, PATIENT TOLERATED PROCEDURE, NEW CONDOMCATHETER IN PLACE, BLADDER SCAN DONE 232ML AT THIS TIME.
[2020-10-07 04:00] VITALS: BP 145/58
--- NOTE | 2020-10-07 04:16 | NUR ---
NEW CONDOM CATH IN PLACE, CONNECTED TO URINE BAG DRAINING TEA COLORED URINE,PATEINT WENT BACK TO SLEEP AFTER. CALL LIGHT AT REACH.
[2020-10-07 06:47] LABS: MEAN CELL VOLUME 80.9 fL CALC (80.0-100.0); MEAN CORPUSCULAR HGB 26.2 pG CALC (26.0-32.0); MEAN CORPUSCULAR HGB CONC 32.4 g/dL CAL (32.0-36.0); RED BLOOD COUNT 2.98 mill/uL (4.70-6.10); RED CELL DISTRI WIDTH 18.6 % (11.5-15.5)
[2020-10-07 06:59] LABS: ANION GAP 11 (6-22 (CALC)); BUN 27 mg/dL (8-23); BUN/CREATININE RATIO 23 (12-20 (CALC)); CARBON DIOXIDE 19 mmol/l (22-30); CHLORIDE 112 mmol/l (95-108); CREATININE 1.2 mg/dL (0.7-1.3); GFR 58 ML/MIN (>=60 (CALC)); GFR FOR AFR.AMER. > 60 ML/MIN (>=60 (CALC)); MAGNESIUM 1.7 mg/dL (1.6-2.3); SODIUM 138 mmol/l (137-146)
--- NOTE | 2020-10-07 07:00 | NUR ---
RECIEVED REPORT FROM RAH WOLFE
[2020-10-07 07:03] LABS: HEMATOCRIT 24.1 % (39.0-50.0); HEMOGLOBIN 7.8 g/dl (14.0-18.0)
[2020-10-07 08:14] VITALS: BP 158/70
[2020-10-07 08:52] VITALS: BP 107/50
--- NOTE | 2020-10-07 08:52 | NUR ---
PT IS A/O X3. ASSESSMENT AND VITALS COMPLETED. BP 107/50, HR 77, O2 95% ON ROOM AIR. RESPIRATIONS ARE EVEN AND UNLABORED WITH NO DISTRESS NOTED. LUNG SOUNDS ARE CLEAR. HEART RHYTHM NORMAL. BOWEL SOUNDS ARE ACTIVE. PT REPORTS MULTIPLE BLACK LOOSE STOOLS. PT INFORMED OF STOOL SAMPLES. SKIN INATCT. #18H RH INFUSING WITH IVF PER ORDER, SITE REMAINS HEALTHY AND PATENT. CONDOM CATH REPLACE. TUBING PATENT. TEA COLORED URINE NOTED. PT DENIES OF ANY PAINS OR DISCOMFORTS AT THIS TIME. ALL SAFETY PRECAUTIONS ARE IN PLACE WITH CALL LIGHT IN REACH. WILL CONTINUE TO MONITOR.
--- NOTE | 2020-10-07 09:10 | NUR ---
DR GAUTAM AT BEDSIDE
--- NOTE | 2020-10-07 09:48 | NUR ---
LAB AT BEDSIDE
[2020-10-07 10:10] LABS: HEMATOCRIT 25.9 % (39.0-50.0); HEMOGLOBIN 8.1 g/dl (14.0-18.0)
--- NOTE | 2020-10-07 12:28 | NUR ---
PT SLEEPING IN SEMI FOWLERS POSITION. RESPIRATIONS ARE EVEN AND UNLABORED WITH NO DISTRESS NOTED. #18G IN RH REMAINS INFUSING IWTH IVF PER ORDER, SITE REMAINS HEALTHY AND PATENT. CONDOM CATH IN PLACE, TUBING PATENT. NO SIGNS OF ANY PAINS OR DISCOMFORTS AT THIS TIME. ALL SAFETY PRECAUTIONS ARE IN PLACE WITH CALL LIGHT IN REACH. WILL CONTINUE TO MONITOR.
[2020-10-07 14:50] VITALS: BP 124/55
--- NOTE | 2020-10-07 15:55 | NUR ---
PT SLEEPING IN SEMI FOWLERS POSITION. RESPIRATIONS ARE EVEN AND UNLABORED WITH NO DIRETSS NOTED. #18G RH INFUSING IWTH IVF PER ORDER, SITE REMAINS HEALTHY AND PATENT. CONDOM CATH IN PLACE. TUBING PATENT. NO SIGNS OF ANY PAINS OR DISCOMFORTS AT THIS TIME. ALL SAFETY PRECAUTIONS ARE IN PLACE WITHC ALL LIGHT IN REACH. WILL CONTINUE TO MONITOR.
--- NOTE | 2020-10-07 15:55 | NUR ---
The patient tells me he has had black stools. Medical is aware and the patient is showing signs of symptomatic anemia affecting his ability to stand. He transfers with slow movement transition and is dyspneic with positional changes and standing. He also shows signs of orthostatic hypotension CECILE decerased to 100/40 in standing. Am Pac score is uncchanged and he would benefit from inpatient rehab or ECF for continued strengthening and funcitonal training given his multiple medical problems
[2020-10-07 19:00] VITALS: BP 160/57
--- NOTE | 2020-10-07 20:10 | NUR ---
PT RESTING QUIETLY IN BED. NO COMPLAINTS VOICED AT THIS TIME. CONDOM CATH REAMINS IN PLACE, DRAINING ORANGE URINE TO GRAVITY. PT RECENTLY STARTED ON PYRIDIUM. IV REMAINS IN PLACE WITH CONTINUED IV FLUIDS. ASSESSMENTS COMPLETED, PLEASE SEE DOCUMENTATION. NO S/S OF DISTRESS, BREATHING EVEN AND UNLABORED. WILL MONITOR.
[2020-10-08] VITALS (7 sets, daily range): BP systolic 113–149; BP diastolic 44–74
--- NOTE | 2020-10-08 00:10 | NUR ---
PT RESTING QUIETLY. NO COMPLAINTS VOICED. NO S/S OF DISTRESS NOTED. CONDOM CATH REMAINS IN PLACE, ORANGE URINE TO GRAVITY. SAFETY PRECAUTIONS REMAIN IN PLACE. WILL MONITOR
--- NOTE | 2020-10-08 04:37 | NUR ---
PT RESTING QUIETLY WITH EYES CLOSED. BREATHING EVEN AND UNLABORED. NO S/S OF DISTRESS NOTED. BREATHING EVEN AND UNLABORED. COMDOM CATH REMAINS IN PLACE, DRAINING ORANGE URINE TO GRAVITY. WILL MONITOR
[2020-10-08 05:52] LABS: HEMATOCRIT 23.8 % (39.0-50.0); HEMOGLOBIN 7.6 g/dl (14.0-18.0); MEAN CELL VOLUME 81.2 fL CALC (80.0-100.0); MEAN CORPUSCULAR HGB 25.9 pG CALC (26.0-32.0); MEAN CORPUSCULAR HGB CONC 31.9 g/dL CAL (32.0-36.0); RED BLOOD COUNT 2.93 mill/uL (4.70-6.10); RED CELL DISTRI WIDTH 18.6 % (11.5-15.5)
[2020-10-08 05:55] LABS: ANION GAP 13 (6-22 (CALC)); BUN 23 mg/dL (8-23); BUN/CREATININE RATIO 19 (12-20 (CALC)); CARBON DIOXIDE 19 mmol/l (22-30); CHLORIDE 113 mmol/l (95-108); CREATININE 1.2 mg/dL (0.7-1.3); GFR 58 ML/MIN (>=60 (CALC)); GFR FOR AFR.AMER. > 60 ML/MIN (>=60 (CALC)); POTASSIUM 3.8 mmol/l (3.5-5.1); SODIUM 141 mmol/l (137-146)
--- NOTE | 2020-10-08 09:00 | NUR ---
RECIEVING PT IN BED ALERT ORIENTED CONDUM CATH IN PLACE DRAINE TITO WELLOW URINE PT DENIED DISCOMFORT, VSS 1 UNIT OF RBC'S GIVEN PER ORDER WELL TOLERATED NO ADVERSE REACTION NOTED
--- NOTE | 2020-10-08 17:00 | NUR ---
PT VSS ACCU CHECK 213 2 UNIT OF INSULIN GIVEN ACCORDING TO EMAR ABDOMEM SOFT TO TOUCH CONDUM CATH DRAINE CLEARE ORANGE URINE DENIED DISCONFORT, NO BLOOD NOTED IN THE URINE OUT OF BED WITH ASSISTANCE HAD LARGE BM.RESTING IN BED WITH NO C/O
--- NOTE | 2020-10-08 19:47 | NUR ---
Patient is receiving Hgb. He is actively performing APs and isometrics. We will hold ambualtion until tomorrow as he not only low in RBS but volume low as well.
--- NOTE | 2020-10-08 20:45 | NUR ---
PT RESTING WELL IN BED. CONDOM CATHETER DISLODGED, CONDOM CATH REMOVED. PT IS VOIDING INTO URINAL ORANGE URINE. ASSESSMENTS COMPLETED, PLEASE SEE DOCUMENTATION. IV FLUIDS CONTINUE. SAFETY PRECAUTIONS IN PLACE, BED IN LOWEST POSITION, CALL LIGHT WITHIN REACH
--- NOTE | 2020-10-09 00:10 | NUR ---
PT IS DOING WELL UTILIZING URINAL INDEPENDENTLY. BLADDER SCAN DONE FOR PT COMFORT NOTED 208ML RETAINED. URINE REMAINS ORANGE D/T PYRIDIUM. NO S/S OF DISTRESS, NO COMPLAINTS VOICED. SAFETY PRECAUTIONS IN PLACE, CALL LIGHT WITHIN REACH. WILL MONITOR
--- NOTE | 2020-10-09 04:10 | NUR ---
PT RESTING QUIETLY IN BED WITH HIS EYES CLOSED. PT CONTINUES TO UTILIZE URINAL AT BEDSIDE. URINATING ORANGE/RED URINE. NO COMPLAINTS VOICED. NO S/S OF DISTRESS. SAFETY PRECAUTIONS IN PLACE, CALL LIGHT WITHIN REACH.
[2020-10-09 04:21] VITALS: BP 152/61
[2020-10-09 05:47] LABS: HEMATOCRIT 25.7 % (39.0-50.0); HEMOGLOBIN 8.4 g/dl (14.0-18.0); MEAN CELL VOLUME 81.3 fL CALC (80.0-100.0); MEAN CORPUSCULAR HGB 26.6 pG CALC (26.0-32.0); MEAN CORPUSCULAR HGB CONC 32.7 g/dL CAL (32.0-36.0); RED BLOOD COUNT 3.16 mill/uL (4.70-6.10); RED CELL DISTRI WIDTH 18.2 % (11.5-15.5)
[2020-10-09 06:03] LABS: ANION GAP 11 (6-22 (CALC)); BUN 21 mg/dL (8-23); BUN/CREATININE RATIO 21 (12-20 (CALC)); CARBON DIOXIDE 20 mmol/l (22-30); CHLORIDE 112 mmol/l (95-108); GFR > 60 ML/MIN (>=60 (CALC)); GFR FOR AFR.AMER. > 60 ML/MIN (>=60 (CALC)); MAGNESIUM 1.8 mg/dL (1.6-2.3); POTASSIUM 3.8 mmol/l (3.5-5.1); SODIUM 140 mmol/l (137-146)
[2020-10-09 07:35] VITALS: BP 156/68
--- NOTE | 2020-10-09 08:00 | NUR ---
PT AXOX3, SITTING UP IN THE BEDSIDE CHAIR . DENIES PAIN. IV INFUSING. STATES HE HOPES TO HOME TODAY. REPOSITIOEND FOR COMFORT, SIDE RAILS UP CALL LIGHT IN REACH BED LOCKED IN LOW POSITION, ALL SAFTY MEASURES IN PLACE, WILL CONTINUE OT MONITOR THE PATIENT.
[2020-10-09 08:51] VITALS: BP 156/68
--- NOTE | 2020-10-09 10:00 | NUR ---
PT UP AMB IN THE [place] WITH PT GRACIELA WELL. NO DISTRESS NOTED AT THIS TIME. WILL CONTINUE OT MONIOTR THE PATIENT.
--- NOTE | 2020-10-09 11:00 | NUR ---
Pt seen for treatment this am. He was OOB in chair and voiced no complaints. LE ex performed x 20 reps in sitting. Passive stretch to gastrocnemius bilaterally done. He moved sit to stand with supervision. Gaitin hallway 2x 80' with CGA but no intervention required or LOB noted. BP in sitting 163/60 on standing 148/59, pt was asymptomatic. Pt returned to his chair with call sarmiento/tray etc in reach. [facility] 16
--- NOTE | 2020-10-09 12:00 | NUR ---
PT IS TO BE DISCHARGED TODAY.
[2020-10-09] MEDS ORDERED: FERROUS SULF325 M3 PO (12:32)
[2020-10-09] MEDS ORDERED: METRONIDAZOL500 MG PO (12:33)
[2020-10-09] MEDS ORDERED: LEVAQUIN750 M1 PO (12:36)
--- NOTE | 2020-10-09 15:00 | NUR ---
Maricel.Ronaldo REMOVED DISCHARGE ORDERS GIVEN UNDERSTOOD AND SIGNED BY THE PT. PT IS GOING TO HIS OWN HOME WITH HOME HEALTH WITH A FAMILY MEMBER. PT LEFT FLOOR VIA WHEEL CHAIR.
[2020-10-09] MEDS ORDERED: PROTONIX40 M2 PO (15:22)
== END 2020-10-09 15:00 | disposition home health service (06) | DRG 689 ==
LOC: ED 19:34 → ED-I 23:55 → ED 10-06 00:20 → MS2 10-06 00:21
PROVIDERS: Family Medicine; Nurse Practitioner; ADMIT Internal Medicine; ATTEND Internal Medicine
PROC: 0VJSXZZ Inspection of Penis, External Approach (ICD-10-PCS; principal; 2020-10-05)
PROC: 30233N1 Transfusion of Nonautologous Red Blood Cells into Peripheral Vein, Percutaneous Approach (ICD-10-PCS; 2020-10-08)
DX: N39.0 Urinary tract infection, site not specified (principal); K57.33 Diverticulitis of large intestine without perforation or abscess with bleeding; D50.9 Iron deficiency anemia, unspecified; I10 Essential (primary) hypertension; E11.51 Type 2 diabetes mellitus with diabetic peripheral angiopathy without gangrene; I25.10 Atherosclerotic heart disease of native coronary artery without angina pectoris; M35.3 Polymyalgia rheumatica; B96.89 Other specified bacterial agents as the cause of diseases classified elsewhere; Z98.890 Other specified postprocedural states; Z79.84 Long term (current) use of oral hypoglycemic drugs; Z95.1 Presence of aortocoronary bypass graft; Z87.440 Personal history of urinary (tract) infections; Z20.822 Contact with and (suspected) exposure to COVID-19
CPT/HCPCS: G0378; J1650; J1756; J1956; P9016; Q9967

== ENCOUNTER 2020-11-05 08:49 | Inpatient (IN) | payer MEDICARE, BC ==
[~2020-11-05] VITALS: Ht 182.9 cm; Wt 85.0 kg
[~2020-11-05 08:49] MED LIST changes: +FERROUS SULF325 M3 PO; +LEVAQUIN750 M1 PO; +METRONIDAZOL500 MG PO; +PROTONIX40 M2 PO
--- NOTE | 2020-11-05 08:49 | NUR ---
PATIETN TO ROOM VIA EMS AND PHYSCIAN NOTIFIED OF PATIENT STATUS
[2020-11-05 09:36] LABS: HEMATOCRIT 36.1 % (39.0-50.0); HEMOGLOBIN 11.5 g/dl (14.0-18.0); IMMATURE GRANULOCYTES 0.3 % (0.0-5.0); MEAN CELL VOLUME 85.7 fL CALC (80.0-100.0); MEAN CORPUSCULAR HGB 27.3 pG CALC (26.0-32.0); MEAN CORPUSCULAR HGB CONC 31.9 g/dL CAL (32.0-36.0); NEUT# 10.75 thou/uL (1.82-7.42); RED BLOOD COUNT 4.21 mill/uL (4.70-6.10); RED CELL DISTRI WIDTH 19.2 % (11.5-15.5)
[2020-11-05 10:02] LABS: ALBUMIN 3.8 g/dL (3.2-5.0); ALKALINE PHOSPHATASE 76 u/l (38-126); ANION GAP 16 (6-22 (CALC)); BILIRUBIN, TOTAL 0.7 mg/dL (0.0-1.4); BUN 22 mg/dL (8-23); BUN/CREATININE RATIO 22 (12-20 (CALC)); CARBON DIOXIDE 19 mmol/l (22-30); CHLORIDE 107 mmol/l (95-108); GFR > 60 ML/MIN (>=60 (CALC)); GFR FOR AFR.AMER. > 60 ML/MIN (>=60 (CALC)); LIPASE 69 u/l (23-300); SGOT/AST 20 u/l (19-48); SODIUM 138 mmol/l (137-146); TOTAL PROTEIN 7.1 g/dL (6.3-8.2)
--- NOTE | 2020-11-05 10:30 | NUR ---
PT AWAITING RESULTS, CALL LIGHT IN REACH
--- NOTE | 2020-11-05 12:00 | NUR ---
PT AWAITING RESULTS, AOX3, NO COMPLAINTS AT THIS TIME
[2020-11-05 13:19] LABS: URINE BILIRUBIN - DIPSTICK NEGATIVE (NEGATIVE); URINE BLOOD DIPSTICK MODERATE (NEGATIVE); URINE COLOR YELLOW; URINE GLUCOSE - DIPSTICK NEGATIVE (NEGATIVE); URINE KETONE NEGATIVE (NEGATIVE); URINE PROTEIN - DIPSTICK NEGATIVE (NEG-TRACE); URINE SPECIFIC GRAVITY 1.015; URINE UROBILINOGEN - DIPSTICK 0.2 E.U./dL (0.2)
[2020-11-05 13:26] LABS: URINE LEUK ESTERASE SMALL (NEGATIVE); URINE NITRITE - DIPSTICK NEGATIVE (Negative)
[2020-11-05 13:37] LABS: URINE WBC >100 WBC/hpf (0-5)
[2020-11-05 16:32] VITALS: BP 162/71
--- NOTE | 2020-11-05 16:32 | NUR ---
PATIENT RECEIVED FROM ED AT THIS TIME. PATIENT ALERT AND ORIENTED X3 AND WALKED FROM WHEELCHAIR TO BED AT THIS TIME. PATIENT GIVEN ROOM ORIENTATION AT THIS TIME AND SAFETY ORIENTATION. PATIENT VERBALIZED UNDERSTANDING OF ABOVE ORIENTATIONS AND OF SIDERRAILS UP X 2. FLOOR CARE TECHNICIAN DONE AT THIS TIME. PATIENT DENIES ANY PAIN AND OR NAUSEA AT THIS TIME. ABDOMEN IS SLIGHTLY DISTENDED AND FIRM AND BOWEL SOUNDS ARE HYPOACTIVE IN ALL FOUR QUADS AT THIS TIME. PATIENT STATES HE HAD A "NORMAL" BOWEL MOVEMENT EARLIER THIS AM. LUNG ALBA ASSESSED AND ARE CLEAR AT THIS TIME. SKIN IS NEGATIVE FOR ANY ISSUES AT THIS TIME. ACCU CHECK WAS 174 AND PATIENT WAS COVERED PER [facility] APRN WITH 1 UNIT OF HUMALOG. PATIENT PRESENT WITH NO EDEMA NOTED. 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 PATIENTS BELONGING LIST COMPLETED BY THIS RN AND FILED IN CHART. PATIENT VERBALIZES UNDERSTANDING OF NPO AND TELE MONITOR IN PLACE AND SHOWING S/R AT 68. PATIENT STATES HE FEELS BETTER THAN HE DID YESTERDAY AND THIS MORNING. CALL LIGHT AND PERSONAL ITEMS WITHIN REACH. PATIENT ADVISED IF HE NEEDS TO USE THE RESTROOM TO PUT FINANCIAL REP LIGHT AND ASK FOR ASSISTANCE. PATIENT VERBALIES UNDERSTANDING AT THIS TIME.
--- NOTE | 2020-11-05 16:36 | NUR ---
PT TO [facility] VIA
[2020-11-05 18:49] VITALS: BP 158/60
--- NOTE | 2020-11-05 20:15 | NUR ---
PT IN BED WITH TV ON. DENIES PAIN/N/V/D AT THIS TIME. REPORTS LAST BM WAS EARLY THIS MORNING. HYPOACTIVE BOWEL SOUNDS AT THIS TIME. ABD SOFT NON-TENDER. ASSESSMENT COMPLETED. WILL FOLLOW-UP WITH MEDICATIONS. DENIES ANY OTHER NEEDS AT THIS TIME.
--- NOTE | 2020-11-05 22:38 | NUR ---
PT MEDICATED ORDERS PROVIDE. ANTIBIOTIC THERAPY ADMINISTERED AT THIS TIME. PT IS IN BED WITH EYES CLOSED, OPENED AND ANSWERED APPROPRIATELY. LIGHTS TURNED BACK DOWN, DENIES ANY OTHER NEEDS. CALL LIGHT W/IN REACH AND HE HAS BEEN ENCOURAGED TO CALL NEEDS ARISE.
[2020-11-05 23:55] VITALS: BP 151/71
[2020-11-06 03:44] VITALS: BP 124/63
--- NOTE | 2020-11-06 04:14 | NUR ---
PT MEDICATED ORDERS PROVIDE. PT WAS SLEEPING, AWOKE TO MY VOICE. LAB IN WITH PT ALSO AT THIS TIME
[2020-11-06 05:46] LABS: HEMOGLOBIN 10.3 g/dl (14.0-18.0); MEAN CELL VOLUME 88.2 fL CALC (80.0-100.0); MEAN CORPUSCULAR HGB 27.5 pG CALC (26.0-32.0); MEAN CORPUSCULAR HGB CONC 31.2 g/dL CAL (32.0-36.0); RED BLOOD COUNT 3.74 mill/uL (4.70-6.10); RED CELL DISTRI WIDTH 19.7 % (11.5-15.5)
[2020-11-06 06:02] LABS: ANION GAP 12 (6-22 (CALC)); BUN 18 mg/dL (8-23); BUN/CREATININE RATIO 18 (12-20 (CALC)); CALCULATED LDLCHOLESTEROL 61 mg/dL (62-129 (CALC)); CARBON DIOXIDE 21 mmol/l (22-30); CHLORIDE 108 mmol/l (95-108); CHOLESTEROL HDL RATIO 5.1 (<4.4 (CALC)); GFR > 60 ML/MIN (>=60 (CALC)); GFR FOR AFR.AMER. > 60 ML/MIN (>=60 (CALC)); HDL CHOLESTEROL 26 mg/dL (>=40); MAGNESIUM 1.6 mg/dL (1.6-2.3); SODIUM 137 mmol/l (137-146); TOTAL CHOLESTEROL 131 mg/dl (0-199); TOTAL TRIGLYCERIDES 225 mg/dl (30-149); VLDL CHOLESTROL 45 mg/dl (0-38 (CALC))
--- NOTE | 2020-11-06 07:00 | NUR ---
SHIFT REPORT, AWAKE ALERT AND ORIENTED IN BED, TELE MONITOR IN PLACE, IVF INFUSING, BED LOCKED IN LOWEST POSITION, CALL AMBROSIO IN REACH.
--- NOTE | 2020-11-06 07:41 | NUR ---
Patient is screened for PT intervention and no needs are identified at this time. He is pending surgical consult
[2020-11-06 07:50] VITALS: BP 127/55
[2020-11-06 11:54] VITALS: BP 120/64
--- NOTE | 2020-11-06 12:00 | NUR ---
SHOWERED, ATE MEAL AND RESTING IN BED, NO C/O DISCOMFORT
--- NOTE | 2020-11-06 15:52 | NUR ---
SLEEPING IN SUPINE POSITION, EVEN NON-LABORED BREATHING, NO SIGN DISCOMFORT
[2020-11-06 19:03] VITALS: BP 119/52
--- NOTE | 2020-11-06 19:37 | NUR ---
PT AWAKE LOCX4, DENIES PAIN/N/V AT THIS TIME. WE DISCUSSED HIS DIET, HE REPORTED EATING SOFT FOOD EARLIER THIS DAY AND STATED THAT IT MADE HIM FEEL REALLY BLOATED, BUT THAT HE FEELS BETTER NOW. WE DISCUSSED CUTTING BACK TO FULL LIQUID, HE AGREED WITH THAT PLAN, JUST THROUGH THE NIGHT. DENIED ANY OTHER NEEDS AT THIS TIME.
--- NOTE | 2020-11-06 21:45 | NUR ---
PT MEDICATED ORDERS PROVIDE. ACTIVE BOWEL SOUNDS AUSCULTATED. PT STATES HE IS GOING TO SLEEP. DENIES ANY NEEDS, BUT I ENCOURAGED HIM TO CALL NEEDS ARISE. CALL LIGHT AT SIDE.
[2020-11-07 01:12] LABS: HEMATOCRIT 32.3 % (39.0-50.0); MEAN CELL VOLUME 88.7 fL CALC (80.0-100.0); MEAN CORPUSCULAR HGB 27.5 pG CALC (26.0-32.0); RED BLOOD COUNT 3.64 mill/uL (4.70-6.10); RED CELL DISTRI WIDTH 19.2 % (11.5-15.5)
[2020-11-07 01:22] LABS: ANION GAP 10 (6-22 (CALC)); BUN 14 mg/dL (8-23); BUN/CREATININE RATIO 14 (12-20 (CALC)); CALCULATED LDLCHOLESTEROL 50 mg/dL (62-129 (CALC)); CARBON DIOXIDE 23 mmol/l (22-30); CHLORIDE 106 mmol/l (95-108); CHOLESTEROL HDL RATIO 4.6 (<4.4 (CALC)); GFR > 60 ML/MIN (>=60 (CALC)); GFR FOR AFR.AMER. > 60 ML/MIN (>=60 (CALC)); HDL CHOLESTEROL 27 mg/dL (>=40); MAGNESIUM 1.4 mg/dL (1.6-2.3); POTASSIUM 3.6 mmol/l (3.5-5.1); SODIUM 136 mmol/l (137-146); TOTAL CHOLESTEROL 125 mg/dl (0-199); TOTAL TRIGLYCERIDES 235 mg/dl (30-149); VLDL CHOLESTROL 47 mg/dl (0-38 (CALC))
--- NOTE | 2020-11-07 03:20 | NUR ---
PT SLEEPING, AWOKE TO MY ENTERING THE ROOM. IVF REPLENISHED AND IV ANTIBIOTIC THERAPY ADMINSTERED AT THIS TIME.
[2020-11-07 03:42] VITALS: BP 127/62
--- NOTE | 2020-11-07 05:26 | NUR ---
PT SLEEPING, AWOKE TO ENTERING. IV ANTIBIOTIC THERAPY ADMINISTERED AT THIS TIME. CALL LIGHT ATSIDE.
--- NOTE | 2020-11-07 07:05 | NUR ---
REPORT RECEIVED FROM RAH SALMON
[2020-11-07 08:00] VITALS: BP 140/54
--- NOTE | 2020-11-07 08:00 | NUR ---
PT RESTING IN SEMI FOWLERS POSITION,A&O X3;VS OBTAINED AND ASSESSMENT COMPLETED;PT DENIES ANY CURRENT PAIN OR DISCOMFORTS,PAIN SCALE AND REPORTING EDUCATED;RESPIRATIONS EVEN AND UNLABORED ON RA,CLEAR LUNG SOUNDS;ABDOMEN DISTENDED/SOFT ON PALPATION AND ACTIVE IN ALL 4 QUADRANTS;STRONG PEDAL PULSES;SKIN INTACT;TELE MONITORING IN PLACE;EMS #20G TO LW INFUSING NS @ 100ML/HR,SITE APPEARS HEALTHY;ACCUCHECK 157, PT COVERED WITH SLIDING SCALE INSULIN PER ORDER;PT DENIES ANY ADDITIONAL NEEDS AND IS ENCOURAGED TO CALL FOR ASSISTANCE IF NEEDED;FALL PRECAUTIONS IN PLACE WITH BED IN THE LOWEST POSITION AND CALL LIGHT IN REACH;WILL CONTINUE TO MONITOR
--- NOTE | 2020-11-07 10:08 | NUR ---
AT BEDSIDE DISCUSSING POC.
[2020-11-07] MEDS ORDERED: CIPROFLOXACN500 MG PO (10:38)
[2020-11-07] MEDS ORDERED: METRONIDAZOL500 MG PO (10:38)
[2020-11-07 11:00] VITALS: BP 148/63
--- NOTE | 2020-11-07 11:05 | NUR ---
PT RESTING IN SEMI FOWLERS POSITION;RESPIRATIONS EVEN AND UNLABORED ON RA;PT DENIES ANY CURRENT PAIN OR NEEDS;IV SITE PATENT INFUSING WITH EASE PER ORDER,MAG INFUSING WELL;ACCUCHECK 190, PT COVERED WITH SLIDING SCALE INSULIN PER ORDER;PT EDUCATED ON PLANS TO D/C HOME THIS AFTERNOON AND VERBALIZES UNDERSTANDING;PT ENCOURAGED TO CALL FOR ASSISTANCE IF NEEDED;CALL LIGHT IN REACH;WILL CONTINUE TO MONITOR
--- NOTE | 2020-11-07 14:15 | NUR ---
ALL DISCHARGE INSTRUCTIONS PROVIDED AT THIS TIME;PT INSTRUCTED TO TAKE ABX DIRECTED.RX FOR CIPRO AND FLAGYL SENT TO THE PHARMACY;PT INSTRUCTED TO CONTINUE ALL ROUTINE HOME MEDICATIONS,F/U WITH PCP, AND NOT DRINK ALCOHOL WHILE TAKING MEDICATIONS.PT DENIES ANY ADDITIONAL QUESTIONS OR NEEDS;IV SITE REMOVED WITH CATHETER INTACT AND TELE MONITORING D/C AT THIS TIME;WHEELCHAIR TO BE PROVIDED FOR D/C HOME;FRIEND TO TRANSPORT PT HOME;WILL CONTINUE TO MONITOR
--- NOTE | 2020-11-07 14:25 | NUR ---
Discharge instructions given. Patient verbalizes understanding of same. Discharged in stable condition via Wheelchair to Home with family. All belongings sent with pt. PT TRANSPORTED TO [facility] IN STABLE CONDITION VIA WHEELCHAIR FOR D/C HOME ACCOMPANIED BY WRITTER AND AND FAMILY.ALL BELONGINGS LEFT WITH PT.FAMILY TO TRANSPORT PT HOME.
== END 2020-11-07 14:23 | disposition home health service (06) | DRG 392 ==
LOC: ED 08:49 → ED-I 12:22 → ED 15:34 → MS2 15:35
PROVIDERS: Emergency Medicine; Nurse Practitioner; ADMIT Hospitalist; ATTEND Hospitalist
DX: K57.32 Diverticulitis of large intestine without perforation or abscess without bleeding (principal); K56.7 Ileus, unspecified; I10 Essential (primary) hypertension; I25.10 Atherosclerotic heart disease of native coronary artery without angina pectoris; E11.51 Type 2 diabetes mellitus with diabetic peripheral angiopathy without gangrene; D64.9 Anemia, unspecified; M35.3 Polymyalgia rheumatica; N21.0 Calculus in bladder; N40.0 Benign prostatic hyperplasia without lower urinary tract symptoms; Z79.84 Long term (current) use of oral hypoglycemic drugs; Z95.1 Presence of aortocoronary bypass graft; Z20.822 Contact with and (suspected) exposure to COVID-19; D50.0 Iron deficiency anemia secondary to blood loss (chronic)
CPT/HCPCS: J1650; J3475

== ENCOUNTER 2021-10-26 10:33 | Observation (INO) | payer MEDICARE, BC ==
[~2021-10-26] VITALS: Ht 182.9 cm; Wt 85.3 kg
[2021-10-26] VITALS (13 sets, daily range): BP systolic 116–160; BP diastolic 44–64
[~2021-10-26 10:33] MED LIST changes: +METFORMIN500 M2 PO; -METFORMIN500 MG PO
--- NOTE | 2021-10-26 10:33 | NUR ---
PT AMBUALTORY TO ROOM
[2021-10-26 11:20] LABS: HEMATOCRIT 37.6 % (39.0-50.0); HEMOGLOBIN 11.7 g/dl (14.0-18.0); IMMATURE GRANULOCYTES 0.2 % (0.0-5.0); MEAN CELL VOLUME 84.3 fL CALC (80.0-100.0); MEAN CORPUSCULAR HGB 26.2 pG CALC (26.0-32.0); MEAN CORPUSCULAR HGB CONC 31.1 g/dL CAL (32.0-36.0); NEUT# 8.9 thou/uL (1.82-7.42); RED BLOOD COUNT 4.46 mill/uL (4.70-6.10); RED CELL DISTRI WIDTH 17.3 % (11.5-15.5)
--- NOTE | 2021-10-26 11:37 | NUR ---
Reassessment of patient completed. No distress noted.
[2021-10-26 11:46] LABS: URINE BILIRUBIN - DIPSTICK NEGATIVE (NEGATIVE); URINE BLOOD DIPSTICK TRACE-INTACT (NEGATIVE); URINE COLOR YELLOW; URINE GLUCOSE - DIPSTICK NEGATIVE (NEGATIVE); URINE KETONE NEGATIVE (NEGATIVE); URINE PROTEIN - DIPSTICK TRACE mg/dL (NEG-TRACE); URINE SPECIFIC GRAVITY 1.025; URINE UROBILINOGEN - DIPSTICK 0.2 E.U./dL (0.2)
[2021-10-26 11:48] LABS: URINE LEUK ESTERASE SMALL (NEGATIVE); URINE NITRITE - DIPSTICK NEGATIVE (Negative)
[2021-10-26 11:56] LABS: URINE SQUAMOUS EPITHELIAL CELL RARE EPI/hpf (0-FEW); URINE WBC 20-50 WBC/hpf (0-5)
[2021-10-26 11:57] LABS: URINE TRANSITIONAL EPI. CELLS RARE hpf
[2021-10-26 12:12] LABS: ACT PARTIAL THROMBO TIME 31.7 SECONDS (20.0-32.5); PROTHROMBIN TIME 10.2 SECONDS (9.0-12.5)
--- NOTE | 2021-10-26 12:15 | NUR ---
Reassessment of patient completed. No distress noted.
[2021-10-26 12:19] LABS: ALBUMIN 4.2 g/dL (3.2-5.0); ALKALINE PHOSPHATASE 64 u/l (38-126); AMYLASE 70 u/l (30-110); ANION GAP 12 (6-22 (CALC)); BILIRUBIN, TOTAL 0.5 mg/dL (0.0-1.4); BUN 20 mg/dL (8-23); BUN/CREATININE RATIO 16 (12-20 (CALC)); CARBON DIOXIDE 24 mmol/l (22-30); CHLORIDE 104 mmol/l (95-108); CREATININE 1.3 mg/dL (0.7-1.3); GFR FOR AFR.AMER. > 60 ML/MIN (>=60 (CALC)); GFR OTHER RACES 53 ML/MIN (>=60 (CALC)); LIPASE 48 u/l (23-300); POTASSIUM 4.2 mmol/l (3.5-5.1); SGOT/AST 18 u/l (19-48); SODIUM 136 mmol/l (137-146); TOTAL PROTEIN 7.6 g/dL (6.3-8.2)
--- NOTE | 2021-10-26 13:12 | NUR ---
PT NOTIFIED FOR NEED FOR ADMISSION. MUNIRA NOTIFIED.
--- NOTE | 2021-10-26 14:15 | NUR ---
Reassessment of patient completed. No distress noted.
--- NOTE | 2021-10-26 15:25 | NUR ---
Reassessment of patient completed. No distress noted.
--- NOTE | 2021-10-26 16:25 | NUR ---
PT ARRIVED TO IN VIA STRETCHER, ACCOMPANIED BY ER, NURSE. PT A&O X3. EVEN AND UNLABORED RESPIRATIONS; CLEAR LUNG SOUNDS UPON AUSCULTATION. TELEMETRY IN PLACE. HYPOACTIBE BOWEL SOUNDS X4 QUADRANTS. IV SITE HEALTHY AND PATENT. SKIN IS INTACT. NO DISTRESS OR PAIN NOTED. PT ORIENTED TO ROOM AND USE OF CALL LIGHT. SAFETY PRECAUTIONS IN PLACE WITH CALL LIGHT IN REACH.
--- NOTE | 2021-10-26 16:31 | NUR ---
REEPORT GIVEN TO DU MONREAL AT THIS TIME
--- NOTE | 2021-10-26 19:45 | NUR ---
PATIENT AOX3. RESTING IN BED; NO DISTRESS NOTED. PATIENT HAS NO C/O @ THIS TIME. ASSESSMENT COMPLETED. FALL PRECAUTION EDUCATION PROVIDED AND IN PLACE. CALL AMBROSIO WITHIN REACH.
[2021-10-27] VITALS (8 sets, daily range): BP systolic 103–141; BP diastolic 48–86
--- NOTE | 2021-10-27 00:32 | NUR ---
PATIENT SLEEPING AT THIS TIME ON ENTERING ROOM. NO DISTRESS NOTED PATIENT RECEIVED SCHEDULED ABX. FALL PRECAUTIONS IN PLACE.
--- NOTE | 2021-10-27 04:28 | NUR ---
PATIENT SLEEPING AT THIS TIME. NO DISTRESS NOTED. FALL PRECAUTIONS IN PLACE. CALL AMBROSIO WITHIN REACH.
[2021-10-27 05:07] LABS: HEMATOCRIT 33.8 % (39.0-50.0); HEMOGLOBIN 10.9 g/dl (14.0-18.0); MEAN CELL VOLUME 82.6 fL CALC (80.0-100.0); MEAN CORPUSCULAR HGB 26.7 pG CALC (26.0-32.0); MEAN CORPUSCULAR HGB CONC 32.2 g/dL CAL (32.0-36.0); RED BLOOD COUNT 4.09 mill/uL (4.70-6.10); RED CELL DISTRI WIDTH 17.2 % (11.5-15.5)
[2021-10-27 05:27] LABS: ANION GAP 10 (6-22 (CALC)); BUN 19 mg/dL (8-23); BUN/CREATININE RATIO 15 (12-20 (CALC)); CARBON DIOXIDE 24 mmol/l (22-30); CHLORIDE 108 mmol/l (95-108); CREATININE 1.2 mg/dL (0.7-1.3); GFR FOR AFR.AMER. > 60 ML/MIN (>=60 (CALC)); GFR OTHER RACES 58 ML/MIN (>=60 (CALC)); POTASSIUM 4.1 mmol/l (3.5-5.1); SODIUM 138 mmol/l (137-146)
--- NOTE | 2021-10-27 07:00 | NUR ---
REPORT RECIEVED FROM REAL ESTATE AGENT RN
--- NOTE | 2021-10-27 09:15 | NUR ---
PT RESTING IN BED STATES NO PAIN IN AT THIS TIME. NO ABD PAIN. TELE MONITOR IN PLACE. CONTINOUS MONITORING PER ED. IV 20G LAC INFUSING IVF PER EMAR. PT IS NPO. BLOOD GLUCOSE: 128, NO COVERAGE NEEDED PER SLIDNING SCALE. FALL/SAFTEY PRECAUTION IN PLACE. CALL LIGHT WITHIN REACH.
--- NOTE | 2021-10-27 13:05 | NUR ---
PT RESTING IN BED.O DISTRESS NOTED. STATES NO ABD PAIN. IV PATENT. FALL/SAFTEY PRECAUTION IN PLACE. CALL LIGHT WITHIN REACH
[2021-10-27] MEDS ORDERED: PROTONIX40 M2 PO (13:18)
[2021-10-27] MEDS ORDERED: CIPROFLOXACN500 MG PO (13:28)
--- NOTE | 2021-10-27 16:02 | NUR ---
Discharge instructions given. Patient verbalizes understanding of same. Discharged in stable condition via Wheelchair to Home with staff. All belongings sent with pt. PT IV REMOVED . NO TELE .
== END 2021-10-27 14:03 | disposition home or self-care (01) ==
LOC: ED 10:33 → ED-I 14:00 → ED 14:01 → MS2 14:01
PROVIDERS: ADMIT Hospitalist; ATTEND Hospitalist
DX: K57.31 Diverticulosis of large intestine without perforation or abscess with bleeding (principal); N39.0 Urinary tract infection, site not specified; K63.5 Polyp of colon; K57.32 Diverticulitis of large intestine without perforation or abscess without bleeding; I10 Essential (primary) hypertension; E11.51 Type 2 diabetes mellitus with diabetic peripheral angiopathy without gangrene; I25.10 Atherosclerotic heart disease of native coronary artery without angina pectoris; M35.3 Polymyalgia rheumatica; E03.9 Hypothyroidism, unspecified; Z79.84 Long term (current) use of oral hypoglycemic drugs; Z95.1 Presence of aortocoronary bypass graft; Z20.822 Contact with and (suspected) exposure to COVID-19
CPT/HCPCS: G0378; Q9967; S0164

== ENCOUNTER 2022-01-12 08:56 | Emergency (ER) | payer MEDICARE, BC ==
[~2022-01-12] VITALS: Ht 182.9 cm; Wt 81.8 kg
[2022-01-12 09:04] VITALS: BP 163/53
[2022-01-12 09:16] VITALS: BP 169/72
== END 2022-01-12 09:30 | disposition home or self-care (01) ==
LOC: ED 08:56
DX: Z03.823 Encounter for observation for suspected inserted (injected) foreign body ruled out (principal); E11.9 Type 2 diabetes mellitus without complications; Z95.1 Presence of aortocoronary bypass graft; Z79.84 Long term (current) use of oral hypoglycemic drugs

== ENCOUNTER 2022-03-20 11:55 | Emergency (ER) | payer MEDICARE, BC ==
[~2022-03-20] VITALS: Ht 182.9 cm; Wt 81.6 kg
[2022-03-20 12:20] VITALS: BP 159/58
[2022-03-20 12:30] VITALS: BP 141/60
[2022-03-20 12:35] LABS: HEMATOCRIT 34.6 % (39.0-50.0); HEMOGLOBIN 11.5 g/dl (14.0-18.0); MEAN CORPUSCULAR HGB 27.6 pG CALC (26.0-32.0); MEAN CORPUSCULAR HGB CONC 33.2 g/dL CAL (32.0-36.0); NEUT# 7.63 thou/uL (1.82-7.42); RED BLOOD COUNT 4.17 mill/uL (4.70-6.10); RED CELL DISTRI WIDTH 16.1 % (11.5-15.5)
[2022-03-20 12:35] LABS: URINE BLOOD DIPSTICK LARGE (NEGATIVE); URINE COLOR BROWN; URINE GLUCOSE - DIPSTICK NEGATIVE (NEGATIVE); URINE KETONE TRACE mg/dL (NEGATIVE); URINE LEUK ESTERASE TRACE (NEGATIVE); URINE PH 5.5 (4.5-8.0); URINE PROTEIN - DIPSTICK 100 mg/dL (NEG-TRACE); URINE SPECIFIC GRAVITY >=1.030; URINE UROBILINOGEN - DIPSTICK 0.2 E.U./dL (0.2)
[2022-03-20 12:36] LABS: URINE BILIRUBIN - DIPSTICK SMALL (NEGATIVE); URINE NITRITE - DIPSTICK NEGATIVE (Negative)
[2022-03-20 12:44] LABS: URINE RBC TNTC RBC/hpf (0-5)
[2022-03-20 12:46] LABS: ALBUMIN 4.1 g/dL (3.2-5.0); ALKALINE PHOSPHATASE 75 u/l (38-126); ANION GAP 12 (6-22 (CALC)); BILIRUBIN, TOTAL 0.5 mg/dL (0.0-1.4); BUN 21 mg/dL (8-23); BUN/CREATININE RATIO 22 (12-20 (CALC)); CARBON DIOXIDE 22 mmol/l (22-30); CHLORIDE 109 mmol/l (95-108); GFR FOR AFR.AMER. > 60 ML/MIN (>=60 (CALC)); GFR OTHER RACES > 60 ML/MIN (>=60 (CALC)); POTASSIUM 4.3 mmol/l (3.5-5.1); SGOT/AST 29 u/l (19-48); SODIUM 140 mmol/l (137-146); TOTAL PROTEIN 7.1 g/dL (6.3-8.2)
[2022-03-20 13:00] VITALS: BP 137/55
[2022-03-20 13:30] VITALS: BP 142/56
[2022-03-20] MEDS ORDERED: CEPHALEXIN500 M1 PO (13:58)
[2022-03-20 14:03] VITALS: BP 171/65
[2022-03-20 14:20] VITALS: BP 171/65
== END 2022-03-20 14:46 | disposition home or self-care (01) ==
LOC: ED 11:55
PROVIDERS: Family Medicine
DX: N39.0 Urinary tract infection, site not specified (principal); R31.9 Hematuria, unspecified; E11.9 Type 2 diabetes mellitus without complications; Z87.442 Personal history of urinary calculi; Z79.84 Long term (current) use of oral hypoglycemic drugs; Z95.1 Presence of aortocoronary bypass graft

== ENCOUNTER 2022-04-03 20:59 | Emergency (ER) | payer MEDICARE, BC ==
[2022-04-03] VITALS (21 sets, daily range): BP systolic 73–180; BP diastolic 35–66
[~2022-04-03] VITALS: Ht 182.9 cm; Wt 80.0 kg
[~2022-04-03 20:59] MED LIST changes: +CEPHALEXIN500 M1 PO
[2022-04-03] MEDS ORDERED: PLAVIX75 MG PO (21:28)
[2022-04-03 22:07] LABS: HEMATOCRIT 30.5 % (39.0-50.0); IMMATURE GRANULOCYTES 0.2 % (0.0-5.0); MEAN CORPUSCULAR HGB 27.9 pG CALC (26.0-32.0); MEAN CORPUSCULAR HGB CONC 32.8 g/dL CAL (32.0-36.0); NEUT# 7.76 thou/uL (1.82-7.42); RED BLOOD COUNT 3.59 mill/uL (4.70-6.10); RED CELL DISTRI WIDTH 16.3 % (11.5-15.5)
[2022-04-03 22:17] LABS: ALBUMIN 3.7 g/dL (3.2-5.0); ALKALINE PHOSPHATASE 71 u/l (38-126); ANION GAP 11 (6-22 (CALC)); BUN 29 mg/dL (8-23); BUN/CREATININE RATIO 24 (12-20 (CALC)); CARBON DIOXIDE 21 mmol/l (22-30); CHLORIDE 114 mmol/l (95-108); CREATININE 1.3 mg/dL (0.7-1.3); GFR FOR AFR.AMER. > 60 ML/MIN (>=60 (CALC)); GFR OTHER RACES 53 ML/MIN (>=60 (CALC)); POTASSIUM 3.7 mmol/l (3.5-5.1); SGOT/AST 25 u/l (19-48); SODIUM 142 mmol/l (137-146); TOTAL PROTEIN 6.5 g/dL (6.3-8.2)
[2022-04-03 22:26] LABS: MYOGLOBIN 122 ng/mL (0 - 121)
[2022-04-03 22:33] LABS: ACT PARTIAL THROMBO TIME 27.1 SECONDS (20.0-32.5); INTERNATIONAL NORMALIZED RATIO 1.1 RATIO (0.7-1.3); PROTHROMBIN TIME 10.6 SECONDS (9.0-12.5)
[2022-04-03 22:40] LABS: BILIRUBIN, TOTAL 0.2 mg/dL (0.0-1.4)
[2022-04-04 00:01] VITALS: BP 166/56
== END 2022-04-04 00:15 | disposition short-term general hospital (02) ==
LOC: ED 20:59
PROVIDERS: Family Medicine
PROC: 30233N1 Transfusion of Nonautologous Red Blood Cells into Peripheral Vein, Percutaneous Approach (ICD-10-PCS; principal; 2022-04-03)
DX: K92.1 Melena (principal); I95.89 Other hypotension; E11.9 Type 2 diabetes mellitus without complications; K57.30 Diverticulosis of large intestine without perforation or abscess without bleeding; Z95.1 Presence of aortocoronary bypass graft; Z79.84 Long term (current) use of oral hypoglycemic drugs
CPT/HCPCS: P9016; S0164

== ENCOUNTER 2023-06-03 10:55 | Emergency (ER) | payer MEDICARE, BC ==
[~2023-06-03] VITALS: Ht 182.9 cm; Wt 77.0 kg
[2023-06-03] VITALS (10 sets, daily range): BP systolic 146–188; BP diastolic 56–115
[~2023-06-03 10:55] MED LIST changes: +PLAVIX75 MG PO
[2023-06-03 11:22] LABS: BASO% 0.2 % (0-3); EOS% 1.6 % (0-8); HEMATOCRIT 41.4 % (39.0-50.0); HEMOGLOBIN 13.6 g/dl (14.0-18.0); IMMATURE GRANULOCYTES 0.1 % (0.0-5.0); LYMPH% 10.7 % (15-41); MEAN CELL VOLUME 91.4 fL CALC (80.0-100.0); MEAN CORPUSCULAR HGB CONC 32.9 g/dL CAL (32.0-36.0); MONO% 9.1 % (2-13); NEUT# 7.79 thou/uL (1.82-7.42); NEUT% 78.3 % (42-76); RED BLOOD COUNT 4.53 mill/uL (4.70-6.10); RED CELL DISTRI WIDTH 14.1 % (11.5-15.5)
[2023-06-03 11:53] LABS: ALBUMIN 4.1 g/dL (3.2-5.0); ALKALINE PHOSPHATASE 65 u/l (38-126); BUN 22 mg/dL (8-23); BUN/CREATININE RATIO 17 (12-20 (CALC)); CARBON DIOXIDE 22 mmol/l (22-30); CHLORIDE 110 mmol/l (95-108); CREATININE 1.3 mg/dL (0.7-1.3); GFR FOR AFR.AMER. > 60 ML/MIN (>=60 (CALC)); GFR OTHER RACES 53 ML/MIN (>=60 (CALC)); LIPASE 51 u/l (23-300); SGOT/AST 25 u/l (19-48); SODIUM 140 mmol/l (137-146); TOTAL PROTEIN 7.3 g/dL (6.3-8.2)
[2023-06-03 11:55] LABS: ANION GAP 12 (6-22 (CALC)); POTASSIUM 3.9 mmol/l (3.5-5.1)
[2023-06-03 11:56] LABS: BILIRUBIN, TOTAL 0.9 mg/dL (0.2-1.3)
[2023-06-03] MEDS ORDERED: ZPAK PO (12:29)
== END 2023-06-03 13:36 | disposition home or self-care (01) ==
LOC: ED 10:55
PROVIDERS: Family Medicine
DX: J06.9 Acute upper respiratory infection, unspecified (principal); E11.9 Type 2 diabetes mellitus without complications; I10 Essential (primary) hypertension; I25.10 Atherosclerotic heart disease of native coronary artery without angina pectoris; N40.0 Benign prostatic hyperplasia without lower urinary tract symptoms; Z95.1 Presence of aortocoronary bypass graft; Z79.84 Long term (current) use of oral hypoglycemic drugs; Z20.822 Contact with and (suspected) exposure to COVID-19

== ENCOUNTER 2023-12-22 09:44 | Emergency (ER) | payer MEDICARE, BC ==
[2023-12-22] VITALS (17 sets, daily range): BP systolic 103–184; BP diastolic 51–112
[~2023-12-22] VITALS: Ht 182.9 cm; Wt 87.0 kg
[~2023-12-22 09:44] MED LIST changes: +ZPAK PO
[2023-12-22 10:34] LABS: BASO% 0.3 % (0-3); EOS% 2.7 % (0-8); HEMATOCRIT 38.8 % (39.0-50.0); HEMOGLOBIN 12.8 g/dl (14.0-18.0); IMMATURE GRANULOCYTES 0.3 % (0.0-5.0); LYMPH% 15.9 % (15-41); MEAN CELL VOLUME 91.3 fL CALC (80.0-100.0); MEAN CORPUSCULAR HGB 30.1 pG CALC (26.0-32.0); MONO% 9.2 % (2-13); NEUT# 6.77 thou/uL (1.82-7.42); NEUT% 71.6 % (42-76); RED BLOOD COUNT 4.25 mill/uL (4.70-6.10); RED CELL DISTRI WIDTH 14.2 % (11.5-15.5)
[2023-12-22 10:46] LABS: ALBUMIN 4.1 g/dL (3.2-5.0); CREATININE 1.3 mg/dL (0.7-1.3); POTASSIUM 3.9 mmol/l (3.5-5.1); TOTAL PROTEIN 7.1 g/dL (6.3-8.2)
[2023-12-22] MEDS ORDERED: TRAMADOL HYDROC50 M1 PO (13:05)
[2023-12-22] MEDS ORDERED: ONDANSETRON 4 MG/TAB ODT PO ONE (13:05)
[2023-12-22] MEDS ORDERED: MORPHINE SULFATE 4 MG/ML VIAL IM ONE (13:05)
== END 2023-12-22 13:44 | disposition home or self-care (01) ==
LOC: ED 09:44
PROVIDERS: Family Medicine
DX: M25.511 Pain in right shoulder (principal); E11.9 Type 2 diabetes mellitus without complications; Z95.1 Presence of aortocoronary bypass graft; Z79.84 Long term (current) use of oral hypoglycemic drugs